=== PATIENT | female | born 1995 | race Caucasian/White ===

== ENCOUNTER 2016-05-01 17:17 | Outpatient (CLI) | payer OTHER ==
[~2016-05-01] VITALS: Ht 175.3 cm; Wt 98.8 kg
[~2016-05-01 17:17] MED LIST: CALC-516 PO; FERR240T9 PO; PREN1TAB17 PO
[2016-05-01 17:32] VITALS: BP 137/73; PULSE 109; RESP 18; Ht 175.3 cm; Wt 98.8 kg
--- NOTE | 2016-05-01 18:21 | RADRPT ---
PROCEDURE: OB ultrasound for biophysical profile CLINICAL INDICATION: Biophysical profile. . TECHNIQUE: Multiple sonographic images of the pelvis were obtained. Transabdominal view of the gr avid uterus are available for review. The images were reviewed on a PACS workstation. COMPARISON: OB ultrasound/07/11 FINDINGS: Single intrauterine gestation. Presentation: cephalic. Placenta: Fundal, no evidence of abruption or previa. breathing movement = 2/2 tone = 2/2 motion = 2/2 REHAN = 2/2 REHAN = 7.9 cm heart rate: 171 beats per minute IMPRESSION: Single intrauterine gestation. Biophysical profile 12/02 REHAN = 7.9 cm RPTAT: AADD .Lucio Christian MD, Date Time Electronically viewed and signed by .Lucio Christian MD, on 05/01/2016 18:21 .B/
--- NOTE | 2016-05-01 20:06 | PN ---
Date/Time of Note Date/Time of Note DATE: 05/01/16 TIME: 20:02 OB Subjective Subjective Subjective 20 yo P1 @ 38 wks 5 days, presents w/ LOF, rare ctx, no VB OB Objective Objective Objective Abdomen- gravid,n/t SVE- 0/30/-3 FHT- 130's; Cat I [place]- irreg ctx Abdomen: WNL Cervical Dilatation: None Effacement: 0% Station: -3 Membranes: Intact Heart Rate: 130's Accelerations: Accelerations Present Decelerations: No Decelerations Varibility: Moderate Contractions on Admission: 6-10 Minutes Apart Intensity: Mild OB Assessment/Plan Other Assessment: 20 yo P1 @ 38 wks, not in labor, not SROM ROM plus neg, nml REHAN, not in labor Other plan: reassuring status not in labor not SROM'd d/c home CRISTINE GARCIA MD May 01, 2016 20:06
--- NOTE | 2016-05-01 21:06 | TRIAGE ---
OB Triage Datetime Report Generated by CPN: 05/01/2016 21:06 Datetime: 05/01/2016 20:13 Stage of : OB Triage Labor Evaluation Frequency: 6-11 Monitor Mode: External Duration (sec)2399: 50-100 Quality: Mild Resting Tone [place]: Relaxed Heart Rate FHR Baseline Rate: 135 Monitor Mode: External US FHR Baseline Changes: No Baseline Change Variability: Moderate 6-25 bpm Accelerations: 15X15 Decelerations: None Category: Category I Datetime: 05/01/2016 20:07 Membrane Status: Intact Datetime: 05/01/2016 19:30 Labor Evaluation Frequency: 6 Monitor Mode: External Duration (sec)2399: 60-100 Quality: Mild Pattern: Normal: <= 5 Contractions in 10 Minutes Resting Tone [place]: Relaxed Heart Rate FHR Baseline Rate: 145 Monitor Mode: External US FHR Baseline Changes: No Baseline Change Variability: Moderate 6-25 bpm Accelerations: 15X15 Decelerations: None Category: Category I Datetime: 05/01/2016 18:30 Stage of : OB Triage Labor Evaluation Frequency: x5 Monitor Mode: External Duration (sec)2399: 40-100 Quality: Mild Resting Tone [place]: Relaxed Heart Rate FHR Baseline Rate: 130 FHR Baseline Changes: No Baseline Change Variability: Moderate 6-25 bpm Accelerations: 15X15 Decelerations: None Category: Category I Datetime: 05/01/2016 17:47 Vaginal Exam Dilatation (cms): 0.0 Effacement (%): 30 Station: -3 Exam By: MADELYN Vaginal Bleeding: None Cervix, Consistency: Firm Cervix, Position: Posterior Presentation 'A': Cephalic Datetime: 05/01/2016 17:37 Assessment Type: Admission Assessment Maternal Assessment Level of Consciousness: Fully Conscious DTR's/Clonus: DTRs 2+; No Clonus Headache: Denies Blurred Vision: No Respiratory Effort: Unlabored; Regular Rhythm; Equal Expansion Breath Sounds, Left: Clear and Equal Breath Sounds, Right: Clear and Equal Nausea/Vomiting: Denies RUQ Epigastric Pain: Denies Lower Extremities Edema: None Degree: None Upper Extremities Edema: None Degree: None Facial Edema: None Fall Risk Assessment History of Falling: (0) No Secondary Diagnosis: (0) No Ambulatory Aid: (0) Bedrest/Nurse Assist IV Therapy: (0) No Gait: (0) Normal/Bedrest/Immobile Mental Status: (0) Oriented to Own Ability Fall Score: 0 Fall Risk Score Definition: No Risk: No action required Datetime: 05/01/2016 17:35 Time of Arrival: 05/01/2016 17:15 EGA: 38.5 Arrived By: Ambulatory Arrived From: Home Chief Complaint: LEAKING SINCE 0900 Movement: Present Contractions: Irregular Time Contractions Began: 05/01/2016 11:00 Rupture of Membranes: Unsure Vaginal Bleeding: None Vaginal Discharge: Present Recent Sexual Intercouse: Denies Abdominal Trauma: Not Applicable Patient Complaints: Other Time Provider Notified: 05/01/2016 17:35 Provider Notified: LEXII Initial Plan: NST, ROM+, BPP WITH REHAN
== END 2016-05-01 20:20 | disposition home or self-care (01) ==
LOC: OBT 17:17 → L-D 17:17 → OBT 20:20
PROVIDERS: ATTEND Obstetrics & Gynecology
DX: O26.893 Other specified pregnancy related conditions, third trimester (principal); Z3A.38 38 weeks gestation of pregnancy
CPT/HCPCS: 36415; 76818; 84112; Z7500; G0463

== ENCOUNTER 2016-05-05 19:11 | Inpatient (IN) | payer OTHER ==
[~2016-05-05] VITALS: Ht 175.3 cm; Wt 98.6 kg
[2016-05-05 21:44] VITALS: Ht 175.3 cm; Wt 98.6 kg
[2016-05-05 21:47] VITALS: BP 130/73; PULSE 86; RESP 16
[2016-05-05] MEDS ORDERED: IBUPROFEN 600 MG TAB PO PRN (22:30)
[2016-05-05] MEDS ORDERED: BUTORPHANOL 2 MG INJ IV PRN (22:30)
[2016-05-05] MEDS ORDERED: OXYTOCIN 30 UNITS/LR 500 ML IV PRN (22:30)
[2016-05-05] MEDS ORDERED: MISOPROSTOL 200 MCG TAB PR PRN (22:30)
[2016-05-05] MEDS ORDERED: CARBOPROST 250 MCG INJ IM PRN (22:30)
[2016-05-05] MEDS ORDERED: OXYTOCIN 30 UNITS/LR 500 ML IV SCH ×2 (22:30)
[2016-05-05] MEDS ORDERED: AMPICILLIN 2 GM/NS (PMX) 100 ML IV ONE (22:30)
[2016-05-05] MEDS ORDERED: LIDOCAINE 1% (MPF) 30 ML INJ INJ PRN (22:30)
[2016-05-05] MEDS ORDERED: ACETAMINOPHEN/CODEINE #3 TAB PO PRN (22:30)
[2016-05-05 22:43] LABS: BASOPHILS % 0.4 % (0.0-2.0); EOSINOPHILS % 0.3 % (0.0-7.0); HEMOGLOBIN 11.5 g/dl (12.0-16.0); LYMPHOCYTES % 19.5 % (15.0-51.0); MEAN CORPUSCULAR HEMOGLOBIN 28.9 pg (29.0-33.0); MEAN CORPUSCULAR HGB CONC 33.8 g/dl (32.0-37.0); MEAN CORPUSCULAR VOLUME 85.6 fl (82.0-101.0); MEAN PLATELET VOLUME 9.7 fl (7.4-10.4); MONOCYTE # 0.1 10^3/ul (0.3-0.9); MONOCYTES % 0.8 % (0.0-11.0); NEUTROPHIL # 8.2 10^3/ul (1.6-7.5); PLATELET COUNT 221 10^3/UL (140-440); RED BLOOD COUNT 3.98 10^6/ul (4.20-5.40); RED CELL DISTRIBUTION WIDTH 14.4 % (11.5-14.5); UNCORRECTED WBC 10.4 10^3/ul (4.8-10.8); WHITE BLOOD COUNT 10.4 10^3/ul (4.8-10.8)
[2016-05-05 22:45] LABS: INR 0.96; PROTIME 12.8 Sec (12.2-14.2)
[2016-05-05 22:46] LABS: PARTIAL THROMBOPLASTIN TIME 25.6 Sec (25.0-35.0)
[2016-05-05 22:47] LABS: CONDITION 1
[2016-05-05] MEDS: LACTATED RINGER'S 1,000 ML IV SCH (22:47)
[2016-05-05] MEDS ORDERED: AMPICILLIN 2 GM/NS (PMX) 100 ML ONE (22:53)
[2016-05-05] MEDS ORDERED: PENICILLIN G K 5,000,000 UNITS in DEXTROSE 5% 100 ML IVPB ONE (23:00)
[2016-05-05] MEDS ORDERED: AMPICILLIN 2 GM/NS (PMX) 100 ML IVPB ONE (23:00)
[2016-05-06] MEDS ORDERED: PENICILLIN G K 2,500,000 UNITS in DEXTROSE 5% 50 ML IVPB SCH (01:00)
[2016-05-06] MEDS ORDERED: LACTATED RINGER'S 1,000 ML IV PRN (02:00)
[2016-05-06] MEDS ORDERED: AMPICILLIN 1 GM/NS (PMX) 50 ML IV SCH (02:30)
[2016-05-06] MEDS: LACTATED RINGER'S 1,000 ML IV SCH (02:35)
[2016-05-06] MEDS ORDERED: AMPICILLIN 1 GM/NS (PMX) 50 ML IVPB SCH (03:00)
[2016-05-06] MEDS: METHYLERGONOVINE 0.2 MG INJ IM PRN ×2 (04:50→06:28)
--- NOTE | 2016-05-06 05:35 | HP ---
Date/Time of Note Date/Time of Note DATE: 05/06/16 TIME: 05:30 OB - History Hx of Present Free Text/Dictation 20 Year-old with SIUP at 39 2/7 presents with a chief complaint of ucs. She has been receiving her care with [facility]. She states good movement. She denies nausea, vomiting, shortness of breath, chest pain, and abdominal pain between contractions, headache, visual changes, vaginal bleeding or LOF. with c/o UCS. : 2 Para: 1 Spontaneous : 0 Therapeutic : 0 Care: Good Care Ultrasounds: Normal mid trimester US Obstetrical Complications: None Medical Complications: None Past Family/Social History * Past Medical, Surgical, Family and Obstetric Histories reviewed from chart. Blood Type: A+ Rubella: immune RPR/VDRL: Negative GBS Status: Negative HBsAG: Unknown OB Admission Exam Vital Signs Vital Signs Vital Signs Date Time Temp Pulse Resp B/P Pulse Ox O2 Delivery O2 Flow Rate FiO2 05/05/16 21:47 97.6 86 16 130/73 Room Air Physical Exam HEENT: WNL Heart: Rhythm Normal Lungs: Clear Abdomen: WNL Extremities: Normal Reflexes: Normal Cervical Dilatation: 3cm Effacement: 75% Station: -2 Membranes: Intact Heart Rate: 130's Accelerations: Accelerations Present Varibility: Moderate Contractions on Admission: < 5 Minutes Apart Intensity: Moderate Last 72 hours Lab Results CBC & BMP 05/05/16 22:10 OB Assessment/Plan Other plan: 20 Year-old with SIUP at 39 2/7 in active labor - FHR: No sign of metabolic acidosis- Category I - Continuous EFM, toco - CBC, blood type and screen - Analgesia options with R/B/A discussed in detail with patient - Epidural per patient request - Please see the orders 2) A+/Rubella: Immune/GBS: unknown, ampicillin per protocol Admission, procedures, expectations, risks and possible complications have been discussed in detail with the patient. Risk of vaginal delivery including but not limited to bleeding, infection, cervical laceration, placental retention, injury to fetus, blood transfusion, blood transfusion related infection, risk of anesthesia, adhesion, cervical laceration, episiotomy/laceration, possible delivery with risk of bleeding, infection, injury to other organs ( bowel, bladder, ureter, vessels, nerves), injury to fetus, blood transfusion, blood transfusion related infection, risk of anesthesia, scar and hernia formation, needs for future , removal of uterus or any other indicated surgery discussed with the patient. She expressed understanding and repeats the risks. All of her questions were answered; all appropriate consents will be signed. PHYSICIAN'S VERIFICATION OF INFORMED CONSENT-NVD The patient was counseled regarding the procedure, its indications, risks, potential complications and alternatives and any questions were answered. Consent was obtained. PLANNED PROCEDURE/TREATMENT: Vaginal delivery with possible vacuum/forceps delivery episiotomy, repair of laceration possible delivery PHYSICIAN'S VERIFICATION OF INFORMED CONSENT FOR BLOOD TRANSFUSION. There is a reasonable possibility that blood transfusion will be necessary as a result of the patient's procedure. I have discussed the following with the patient/patient's legal cash application representative: An explanation of the benefits and risks of the transfusion of blood or blood products and the possible alternatives. Al questions have been answered to the patient's/patients legal representatives satisfaction. INFORMED CONSENT: The patient has been informed of: - The nature of the proposed care, treatment, services, medications, interventions or procedures. - Potential benefits, risks or side effects, including potential problems related to recuperation. - The likelihood of achieving care treatment and service goals. - Reasonable alternatives to the proposed care, treatment and service. - The relevant risks, benefits and side effects related to alternatives, including the possible results of not receiving care, treatment and services. - When indicated, any limitations on the confidentiality of information learned from or about the patient. - If appropriate, the risks, benefits and alternatives of the drugs to be used for sedation/analgesia including moderate sedation. - If appropriate, patient has been provided information on the risks, benefits and alternatives to the transfusion of blood and/or blood products. Bonny Mueller MD Copies To: CC: LILA PEREZ MD, SEDI May 06, 2016 05:35
[2016-05-06] MEDS: LACTATED RINGER'S 1,000 ML IV* SCH ×2 (05:39→09:02)
[2016-05-06] MEDS ORDERED: DEXTROSE 5%-LR 1,000 ML IV SCH (05:39)
--- NOTE | 2016-05-06 05:39 | LDN ---
Date/Time of Note Date/Time of Note DATE: 05/06/16 TIME: 05:36 Delivery Summary 20 Year-old with SIUP at 39 3/7 wks delivered a viable female . : 9/9, Weight: 3005 gram (6 lbs 10 oz) Time of delivery: 04:41 Placenta Delivered: Spontaneously Meconium: none Perineum intact?: No (1 cm right vaginal wall laceration) Perineal laceration repair: 3/0 chromic Anesthesia type: None Estimated blood loss: 400 Sponge & Needle done & correct: Yes All needle counts correct: Yes Any foreign bodies felt in the: No Problems: Delivery Information Sex Sex: female Apgars 1 Minute: 9 5 Minute: 9 Suctioning Nose & mouth suctioned at nicolette: Yes Umbilical Cord Umbilical cord with: 3 Vessels Cord presentations: no nuchal cord Cord Blood was obtained: Yes Copies To: CC: LILA PEREZ MD, SEDI May 06, 2016 05:39
[2016-05-06] MEDS ORDERED: BENZOCAINE 20% 56 ML SPRAY TOP PRN (06:00)
[2016-05-06] MEDS ORDERED: LANOLIN 7 GM TUBE TOP PRN (06:00)
[2016-05-06] MEDS ORDERED: WITCH HAZEL/GLYCERIN PAD PR PRN (06:00)
[2016-05-06] MEDS ORDERED: ZOLPIDEM 5 MG TAB PO PRN (06:00)
[2016-05-06] MEDS ORDERED: ACETAMINOPHEN 325 MG TAB PO PRN (06:00)
[2016-05-06] MEDS ORDERED: DIBUCAINE 1% 30 GM OINT PR PRN (06:00)
[2016-05-06] MEDS ORDERED: DIPHENHYDRAMINE 50 MG INJ IV PRN (06:00)
[2016-05-06] MEDS ORDERED: ONDANSETRON 4 MG INJ IV PRN (06:00)
[2016-05-06] MEDS ORDERED: MISOPROSTOL 200 MCG TAB PR PRN ×2 (06:00→11:30)
[2016-05-06] MEDS ORDERED: SENNA/DOCUSATE NA (8.6MG/50MG) TAB PO PRN (06:00)
[2016-05-06] MEDS ORDERED: OXYTOCIN 30 UNITS/LR 500 ML IV PRN ×2 (06:00→11:30)
[2016-05-06] MEDS ORDERED: METHYLERGONOVINE 0.2 MG INJ IM PRN ×2 (06:00→11:30)
[2016-05-06] MEDS ORDERED: CARBOPROST 250 MCG INJ IM PRN ×2 (06:00→11:30)
[2016-05-06] MEDS ORDERED: OXYCODONE/ASPIRIN (4.88/325) TAB PO PRN ×2 (06:00→11:30)
[2016-05-06] MEDS ORDERED: IBUPROFEN 600 MG TAB PO SCH (06:00)
[2016-05-06] MEDS: IBUPROFEN 600 MG TAB PO SCH ×4 (08:43→23:39)
--- NOTE | 2016-05-06 09:56 | OPRPT ---
Intraop Record Datetime Report Generated by CPN: 05/06/2016 09:56 Datetime: 05/05/2016 22:29 Drug Allergies/Reactions: No Known Drug Allergies (05/05/2016) Datetime: 05/01/2016 17:37 Food Allergies/Reactions: NONE Latex Allergies/Reactions: No Latex Allergies Datetime: 02/19/2016 13:36 Drug Allergies/Reactions: No Known Drug Allergies (01/01/2016)
--- NOTE | 2016-05-06 09:56 | DELSUM ---
Delivery Summary A-C Datetime Report Generated by CPN: 05/06/2016 09:56 DELIVERY PERSONNEL [employer] Sequestration Plant Operator: Alice Moon MATERNAL INFORMATION Delivery Anesthesia: None Medications in Delivery: LR WITH 30UNITS OF PITOCIN Estimated Blood Loss (ml): 493 Placenta Cultured: No Maternal Complications: Other Other Maternal Complications: LOW FLAQUITA-A LABOR SUMMARY EDC: 05/10/2016 00:00 No. Babies in Womb: 1 Attempted: No Labor Anesthesia: None LABOR INFORMATION Reason for Induction: Not Applicable Onset of Labor: 05/05/2016 10:00 Complete Dilatation: 05/06/2016 04:31 Oxytocin: N/A Group B Beta Strep: UNKNOWN Antibiotics # of Doses: AMPICILLIN X2 Antibiotics Time of Last Dose: 330 Steroids Given: None Reason Steroids Not Administered: Not Applicable MEMBRANES Membranes Rupture Method: Spontaneous Rupture of Membranes: 05/06/2016 03:40 Length of Rupture (hr): 1.02 Amniotic Fluid Color: Clear Amniotic Fluid Amount: Small Amniotic Fluid Odor: Normal STAGES OF LABOR Stage 1 hr: 18 Stage 1 min: 31 Stage 2 hr: 0 Stage 2 min: 10 Stage 3 hr: 0 Stage 3 min: 2 Total Time in Labor hr: 18 Total Time in Labor min: 43 VAGINAL DELIVERY Episiotomy: None Laceration Extension: First Degree Laceration Type: Vaginal Initial Vag Sponge Count: 20 Final Vag Sponge Count: 20 Initial Vag Sharps Count: 1 Final Vag Sharps Count: 2 Sponge Count Correct: Yes Sharps Count Correct: Yes BABY A INFORMATION Delivery Date/Time: 05/06/2016 04:41 Method of Delivery: Vaginal Born in Route : No : N/A Forceps: N/A Vacuum Extraction: N/A Shoulder Dystocia : N/A SHOULDER DYSTOCIA BABY A Infant Delivery Date/Time: 05/06/2016 04:41 PRESENTATION/POSITION BABY A Presentation: Cephalic Cephalic Presentation: Vertex Vertex Position: Left Occipital Anterior Breech Presentation: N/A PLACENTA INFORMATION BABY A Placenta Delivery Time : 05/06/2016 04:43 Placenta Method of Delivery: Spontaneous Placenta Status: Delivered SCORES BABY A Heart Rate 1 min: >100 bpm Resp Effort 1 min: Good Cry Reflex Irritability 1 min: Cough/Sneeze/Pulls Away Muscle Tone 1 min: Active Motion Color 1 min: Body [place], Extremit Blue Resuscitation Effort 1 min: Tactile Stimulation SCORE 1 MIN: 9 Heart Rate 5 min: >100 bpm Resp Effort 5 min: Good Cry Reflex Irritability 5 min: Cough/Sneeze/Pulls Away Muscle Tone 5 min: Active Motion Color 5 min: Body [place], Extremit Blue Resuscitation Effort 5 min: Tactile Stimulation SCORE 5 MIN: 9 INFANT INFORMATION BABY A Gestational Age at Delivery: 39.3 Gestational Status: Full Term- 39- 40.6 Weeks Outcome : Liveborn Infant Condition : Stable Infant Sex: Female IDENTIFICATION/MEDS BABY A ID Band Number: [id number] ID Band Location: Right Leg; Left Arm Sensor Applied: Yes Sensor Number: [id number] Sensor Location : Cord Clamp Vitamin K Given : Not Given Erythromycin Given: Not Given WEIGHT/LENGTH BABY A Infant Birthweight (gm): 3005 Infant Weight (lb): 6 Infant Weight (oz): 10 Infant Length (in): 19.00 Infant Length (cm): 48.26 CORD INFORMATION BABY A No. Cord Vessels: 3 Nuchal Cord : N/A Cord Blood Taken: Yes Infant Suction: Mouth; Nose ASSESSMENT BABY A Complications: None Physical Findings at Delivery: Within Normal Limits Respirations: Appears Normal Urgent Care Technician/ALS Called : No Care By: Teresita MORALES Transferred To: Remains with Mother
[2016-05-06 10:00] VITALS: BP 114/58; PULSE 88; RESP 18
[2016-05-06 12:00] VITALS: BP 115/60; PULSE 85; RESP 16
[2016-05-06 15:59] VITALS: BP 100/55; PULSE 86; RESP 16
[2016-05-06 20:15] VITALS: BP 124/79; PULSE 76; RESP 19
[2016-05-07 04:15] VITALS: BP 120/65; PULSE 77; RESP 19
[2016-05-07] MEDS: IBUPROFEN 600 MG TAB PO SCH ×4 (05:53→23:49)
[2016-05-07 08:30] VITALS: BP 119/75; PULSE 80; RESP 18
[2016-05-07 10:41] LABS: BASOPHILS % 0.4 % (0.0-2.0); EOSINOPHILS # 0.1 10^3/ul (0.0-0.5); EOSINOPHILS % 0.9 % (0.0-7.0); HEMATOCRIT 30.3 % (37.0-47.0); HEMOGLOBIN 10.1 g/dl (12.0-16.0); LYMPHOCYTES # 2.4 10^3/ul (0.8-2.9); MEAN CORPUSCULAR HEMOGLOBIN 28.9 pg (29.0-33.0); MEAN CORPUSCULAR HGB CONC 33.3 g/dl (32.0-37.0); MEAN CORPUSCULAR VOLUME 86.7 fl (82.0-101.0); MEAN PLATELET VOLUME 9.6 fl (7.4-10.4); MONOCYTE # 0.5 10^3/ul (0.3-0.9); MONOCYTES % 5.2 % (0.0-11.0); NEUTROPHILS % 66.5 % (39.0-77.0); PLATELET COUNT 207 10^3/UL (140-440); RED CELL DISTRIBUTION WIDTH 14.4 % (11.5-14.5); UNCORRECTED WBC 9.1 10^3/ul (4.8-10.8); WHITE BLOOD COUNT 9.1 10^3/ul (4.8-10.8)
[2016-05-07 10:45] LABS: CONDITION 1
[2016-05-07 12:30] VITALS: BP 115/71; PULSE 78; RESP 18
[2016-05-07 13:57] LABS: RUBELLA ANTIBODY - IGG 1.38
[2016-05-07 20:03] VITALS: BP 122/68; PULSE 82; RESP 18
--- NOTE | 2016-05-07 23:56 | DS ---
Date/Time of Note Date/Time of Note home in AM DATE: 05/07/16 TIME: 23:54 Obstetrical Discharge Record Final Diagnosis Final Diagnosis: Term delivered Other Final Diagnosis S/P vaginal delivery Vaginal Delivery Obstetrical Delivery: Spontaneous, Laceration, Repaired Condition on Discharge Physical Assessment Last Vitals: see nurses notes Voiding: Yes Bowel Movement: Yes Breast: Soft, non-tender, Filling Fundus: Firm Abdomen and Incision: soft BS + Episiotomy: N/A perineum: healing Calf Tenderness: No Patient Condition: Good LILA PEREZ MD May 07, 2016 23:56
--- NOTE | 2016-05-07 23:57 | PD.PPDC ---
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
[2016-05-07] MEDS ORDERED: IBUP-1542 PO (23:58)
[2016-05-08 04:00] VITALS: BP 121/74; PULSE 99; RESP 18
[2016-05-08] MEDS: IBUPROFEN 600 MG TAB PO SCH ×2 (05:48→11:33)
[2016-05-08 08:00] VITALS: BP 120/82; PULSE 81; RESP 17
[2016-05-08] MEDS ORDERED: MEASLES,MUMPS,RUBELLA VACCINE INJ SC* ONE (09:00)
[2016-05-08] MEDS ORDERED: DIPHTH/TET/ACEL PERTUSS (ADULT) 0.5 ML VIAL IM* ONE (09:00)
== END 2016-05-08 16:55 | disposition home or self-care (01) | DRG 775 ==
LOC: OBT 19:11 → L-D 19:12 → OBT 22:00 → PP1 05-06 09:53
PROVIDERS: ADMIT Obstetrics & Gynecology; ATTEND Obstetrics & Gynecology
PROC: 10E0XZZ Delivery of Products of Conception, External Approach (ICD-10-PCS; principal; 2016-05-06)
DX: O70.0 First degree perineal laceration during delivery (principal); Z37.0 Single live birth; Z3A.39 39 weeks gestation of pregnancy
CPT/HCPCS: 36415; 85025; 85610; 85730; 86592; 86762; 86900; 86901; 87340; 99464; A4310; G0463; J0290; J2210; J2590; J7120; J7121

== ENCOUNTER 2017-02-25 21:52 | Emergency (ER) | payer OTHER ==
[~2017-02-25] VITALS: Ht 177.8 cm; Wt 93.6 kg
[~2017-02-25 21:52] MED LIST changes: +IBUP-1542 PO
[2017-02-25 22:09] VITALS: Ht 177.8 cm; Wt 93.6 kg
--- NOTE | 2017-02-26 02:21 | RADRPT ---
PROCEDURE: Lumbar spine. CLINICAL INDICATION: Low back pain. TECHNIQUE: Three views including AP, lateral and cone-down lateral view of the lumbar spine were obtained. COMPARISON: None. FINDINGS: There is no acute fracture or subluxation. Lumbar vertebral body heights and alignment are within n ormal limits. Intervertebral disk spaces are within normal limits. The posterior elements are unre markable. IMPRESSION: No evidence of fracture or subluxation. .Jama Watkins MD, MD Date Time Electronically viewed and signed by .Jama Watkins MD, on 02/26/2017 02:21 .T/
[2017-02-26] MEDS ORDERED: IBUP-1542 PO (02:24)
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
== END 2017-02-26 02:37 | disposition home or self-care (01) ==
LOC: FTE 21:52
DX: S29.9XXA Unspecified injury of thorax, initial encounter (principal); V43.53XA Car driver injured in collision with pick-up truck in traffic accident, initial encounter
CPT/HCPCS: 72100; Z7502

== ENCOUNTER 2017-10-10 14:45 | Emergency (ER) | END 2017-10-10 17:43 | disposition home or self-care (01) ==